=== PATIENT | female | born 1960 | race African-American/Black ===

== ENCOUNTER 2018-05-08 14:04 | Outpatient (CLI) | payer BC ==
[2016-02-15 11:15] VITALS: BP 111/69
== END 2018-05-08 14:09 ==
LOC: POD 14:04
PROVIDERS: ATTEND Podiatrist
DX: E11.9 Type 2 diabetes mellitus without complications (principal); L60.0 Ingrowing nail
CPT/HCPCS: 99213

== ENCOUNTER 2019-06-01 14:46 | Outpatient (CLI) | payer BC ==
[2016-02-15 11:15] VITALS: BP 111/69
--- NOTE | 2019-06-01 16:28 | Diagnostic Imaging Report ---
LISSA HIRSCH (RADHAMES) - OP [facility] [address] [address] Report Submission Date: Jun 01, 2019 3:42:42 PM CDT Patient Study Name: LETTY GORMAN Date: Jun 01, 2019 2:51:53 PM CDT Modality Type: US Gender: F Description: US RETROPERITONEAL COMPLETE : 58 Institution: [facility] Physician: LISSA HIRSCH (RADHAMES) - OP Examination: Ultrasound kidneys History: US RT FLANK PAIN X 1 WEEK Comparison exams: None available. Findings: Right kidney measures 10.3 cm in length. Left kidney measures 11.2 cm in length. No evidence for cortical mass bilaterally. No abnormal dilation of the intrarenal collecting systems. Bladder margin without abnormality. Bladder volume 65 mL. Impression: No cortical mass or obstruction. Electronically signed on Jun 01, 2019 3:42:42 PM CDT by: Kevin BROWN
== END 2019-06-01 14:48 ==
LOC: RAD 14:46
PROVIDERS: ATTEND Nurse Practitioner Family
DX: R31.9 Hematuria, unspecified (principal); R10.9 Unspecified abdominal pain
CPT/HCPCS: 76770